=== PATIENT | female | born 1965 | race Caucasian/White ===

== ENCOUNTER → 2019-07-11 08:50 | Day surgery (SDC) | payer OTHER, SELFPAY ==
[2019-07-11] VITALS (7 sets, daily range): BP systolic 102–122; BP diastolic 62–75; PULSE 52–66; RESP 11–17; TEMP 36.1–36.7; O2SAT 97–100; BMI 23.3
[2019-07-11] MEDS: SODIUM CHLORIDE 0.9% 1,000 ML 42 ML IV (09:30)
--- NOTE | 2019-07-11 10:11 | PM.HP.1 ---
History of Present Illness History of Present Illness Date Patient Seen: 07/11/19 Chief complaint: [id number] Narrative: First colonoscopy for colorectal cancer screening Patient History Family & Social History Social History: household members spouse Tobacco & Substance use: Smoking Status Former smoker alcohol intake current alcohol intake frequency 0-2 drinks per day Substance Use Type does not use Meds Home Medications and Allergies Home Medications Medication Instructions Recorded Confirmed Type No Known Home Medications 07/11/19 07/11/19 History Allergies Allergy/AdvReac Type Severity Reaction Status Date / Time No Known Drug Allergies Allergy Verified 07/11/19 09:33 Exam Vital Signs (past 8 hours): - 07/11/19 09:34 Temperature 98.1 F Pulse Rate 54 L Respiratory Rate 15 Blood Pressure 112/75 Pulse Oximetry 99 Oxygen Delivery Method Room Air Narrative Exam Narrative: Oropharynx free of lesions Chest clear to auscultation percussion Cardiac exam reveals no S3 or murmur Assessment & Plan Assessment & Plan narrative: Need for colorectal cancer screening. Risks, benefits, alternatives to colonoscopy have been discussed. Further recommendation will follow the results of the study.
--- NOTE | 2019-07-11 10:11 | PM.OP.ENDO ---
Operative Date/Time/Diagnoses Date of procedure: 07/11/19 Pre-op diagnosis: See indication and findings Procedure & Clinicians Study performed: Colonoscopy Same procedure as scheduled: Yes Indications: Screening Surgeon: Bruna Collins Procedure Notes Procedure in detail: After informed consent was obtained the patient was placed in left lateral decubitus position. The video colonoscope was introduced the rectum slowly advanced cecum. On slow withdrawal mucosa was carefully examined. The scope was removed. The patient tolerated procedure well. Blood loss none Complications none Sedation Total sedation time 26 minutes Versed 10 mg fentanyl 150 mg IV titration Findings 1. Normal colonoscopy to cecum Patient should have follow-up colonoscopy in 10 years. For the next examination she should have anesthesia assistance.
[2019-07-11] MEDS: MIDAZOLAM 5 MG/5 ML VIAL IV (10:17)
[2019-07-11] MEDS: fentaNYL 250 MCG/5 ML INJ IV (10:18)
== END | disposition home or self-care (01) ==
PROVIDERS: PCP Family Medicine; Referring Provider Internal Medicine Gastroenterology; Visit Provider Internal Medicine Gastroenterology
PROC: 0DJD8ZZ Inspection of Lower Intestinal Tract, Via Natural or Artificial Opening Endoscopic (ICD-10-PCS; CPT 45378; principal; 2019-07-11 10:00)
DX: Z12.11 Encounter for screening for malignant neoplasm of colon (principal)
CPT/HCPCS: 45378; J2250; J3010